=== PATIENT | male | born 1950 | race Caucasian/White ===

== ENCOUNTER 2025-04-27 13:37 | Inpatient (IN) | payer MEDICARE ==
[~2025-04-27] VITALS: Ht 180.3 cm; Wt 58.1 kg
[2025-04-27 13:44] VITALS: BP 158/94
[2025-04-27] MEDS ORDERED: DARU800T2 PO (13:51)
[2025-04-27] MEDS ORDERED: DOLU50TA PO (13:51)
[2025-04-27] MEDS ORDERED: TAMS-3 PO (13:51)
[2025-04-27] MEDS ORDERED: ESZO1TAB11 PO (13:51)
[2025-04-27] MEDS ORDERED: LOSA100T31 PO (13:51)
[2025-04-27] MEDS ORDERED: RITO100T PO (13:51)
[2025-04-27] MEDS ORDERED: MAG HYDROX/AL HYDROX/SIMETH 30 ML LIQUID UDC PO PRN (16:15)
[2025-04-27] MEDS ORDERED: MAGNESIUM HYDROXIDE 30 ML LIQUID UDC PO PRN (16:15)
[2025-04-27] MEDS ORDERED: ZOLPIDEM 5 MG TABLET PO PRN (16:15)
[2025-04-27] MEDS ORDERED: LORAZEPAM 1 MG TABLET PO PRN (16:15)
[2025-04-27] MEDS: BLOOD SUGAR DIAGNOSTIC 1 EACH STRIP VI ONE (18:06)
[2025-04-27 18:14] VITALS: BP 155/100; TEMP 98.1; O2SAT 96
[2025-04-27 20:18] VITALS: BP 155/100; TEMP 98.1; O2SAT 96
[2025-04-27] MEDS: OLANZAPINE 10 MG VIAL IM ONE (20:33)
[2025-04-28 08:01] VITALS: BP 159/97; TEMP 98.1; O2SAT 96
[2025-04-28 08:23] LABS: ASPARTATE AMINOTRANSFERASE 87 U/L (15-37); CREATININE 1.6 mg/dL (0.6-1.3); SODIUM SERUM 139 mmol/L (136-145); TOTAL PROTEIN, SERUM 7.9 g/dL (6.4-8.2); UREA NITROGEN, BLOOD 18 mg/dL (7-18)
[2025-04-28] MEDS: POTASSIUM CHLORIDE 20 MEQ TAB.PRT.SR PO ONE (12:14)
[2025-04-28] MEDS: LOSARTAN POTASSIUM 50 MG TABLET PO SCH (15:54)
[2025-04-28 16:19] VITALS: BP 141/69; TEMP 98.1; O2SAT 96
[2025-04-28] MEDS: TIVICAY 50 MG PO SCH (17:26)
[2025-04-28] MEDS: RITONAVIR 100 MG PO SCH (17:26)
[2025-04-28] MEDS: [UNRECOGNIZED DRUG - OTHER] PO SCH (17:26)
[2025-04-28] MEDS: [UNRECOGNIZED DRUG - OTHER] PO SCH (17:26)
[2025-04-28] MEDS: [UNRECOGNIZED DRUG - OTHER] PO SCH (18:28)
[2025-04-28] MEDS: DARUNAVIR 800 MG PO SCH (18:28)
[2025-04-28 19:46] VITALS: BP 157/93; TEMP 98.1; O2SAT 98
[2025-04-28] MEDS: QUETIAPINE FUMARATE 25 MG TABLET PO SCH (20:07)
[2025-04-28] MEDS: ACETAMINOPHEN 325 MG TABLET PO PRN (21:54)
[2025-04-28] MEDS: LORAZEPAM 1 MG TABLET PO PRN (21:54)
[2025-04-29 08:04] VITALS: BP 128/72; TEMP 98.1; O2SAT 96
[2025-04-29] MEDS: TAMSULOSIN HCL 0.4 MG CAP.SR.24H PO SCH (08:19)
[2025-04-29] MEDS ORDERED: DARUNAVIR ETHANOLATE 800 MG TABLET PO SCH (09:00)
[2025-04-29] MEDS: ENSURE ENLIVE (VAN) 240 ML LIQUID PO SCH (09:47)
[2025-04-29 16:14] VITALS: BP 122/71; TEMP 98.1; O2SAT 96
[2025-04-29 20:00] VITALS: BP 129/73; TEMP 98; O2SAT 96
[2025-04-30 08:17] LABS: PLATELET COUNT (AUTO) 185 K/uL (152-348); RED BLOOD CELL COUNT(AUTO) 4.27 MIL/uL (4.06-5.63); RED CELL DISTRIBUTION WIDTH 13.2 % (12.1-16.2); WHITE BLOOD COUNT (AUTO) 5.4 K/uL (3.6-10.2)
[2025-04-30 08:32] VITALS: BP 143/80; TEMP 98.1; O2SAT 96
[2025-04-30 08:34] LABS: ASPARTATE AMINOTRANSFERASE 25 U/L (15-37); CREATINE KINASE, TOTAL 26 U/L (39-308); CREATININE 1.5 mg/dL (0.6-1.3); SODIUM SERUM 141 mmol/L (136-145); TOTAL PROTEIN, SERUM 5.7 g/dL (6.4-8.2); UREA NITROGEN, BLOOD 21 mg/dL (7-18)
[2025-04-30 13:42] LABS: BAND % (MANUAL) 2 % (0-10); EOSINOPHILS % (MANUAL) 2 % (0-8); LYMPHOCYTES % (MANUAL) 25 % (20-40); MONOCYTES % (MANUAL) 16 % (2-10); NEUTROPHILS % (MANUAL) 55 % (42-75); PLATELET ESTIMATE ADEQUATE
[2025-04-30 16:05] VITALS: BP 152/80; TEMP 98.1; O2SAT 96
[2025-04-30 19:57] VITALS: BP 155/92; TEMP 98.4; O2SAT 97
[2025-05-01 07:10] LABS: PTH, INTACT 19 pg/mL (15-65)
[2025-05-01 07:30] VITALS: BP 154/91; TEMP 98.4; O2SAT 95
[2025-05-01 16:04] VITALS: BP 165/96; TEMP 97.7; O2SAT 95
[2025-05-01 18:14] LABS: *BILIRUBIN,URIN NEGATIVE (NEGATIVE); *BLOOD, URINE NEGATIVE (NEGATIVE); *CLARITY,URINE CLEAR (CLEAR); *COLOR,URINE YELLOW (YELLOW); *KETONES,URINE NEGATIVE (NEGATIVE); *PROTEIN,URINE NEGATIVE (NEGATIVE); *UROBILINOGEN,URINE 0.2 E.U./dl (NORMAL); LEUKOCYTE ESTERASE ,URINE NEGATIVE (NEGATIVE); NITRITE, URINE NEGATIVE (NEGATIVE); UGLUCOSE NEGATIVE (NEGATIVE)
[2025-05-01 18:23] LABS: *CREATININE,URINE 77.7 mg/dL (30-125); *SODIUM RNDM,URINE 57.0 mmol/L (40-220); *URINE TOTAL PROTEIN RANDOM 15.7 mg/dL (<150/24HR)
[2025-05-01 20:00] VITALS: BP 146/96; TEMP 98.8; O2SAT 97
[2025-05-01] MEDS: QUETIAPINE FUMARATE 25 MG TABLET PO SCH (20:32)
[2025-05-01] MEDS: ZOLPIDEM 5 MG TABLET PO PRN (23:54)
[2025-05-02 07:55] VITALS: BP 155/92; TEMP 98; O2SAT 96
[2025-05-02] MEDS: ESCITALOPRAM OXALATE 10 MG TABLET PO SCH (14:27)
[2025-05-02 15:05] VITALS: BP 151/90; TEMP 98; O2SAT 96
[2025-05-02 19:51] VITALS: BP 170/99; TEMP 98.1; O2SAT 96
[2025-05-02] MEDS: OLANZAPINE 2.5 MG TABLET PO SCH (20:29)
[2025-05-02 21:30] VITALS: BP 158/94
[2025-05-03 07:52] VITALS: BP 155/95; TEMP 97.8; O2SAT 96
[2025-05-03 08:25] LABS: CREATININE 1.3 mg/dL (0.6-1.3); SODIUM SERUM 140 mmol/L (136-145); UREA NITROGEN, BLOOD 15 mg/dL (7-18)
[2025-05-03 15:37] VITALS: BP 115/77; TEMP 98.2; O2SAT 96
[2025-05-03 19:53] VITALS: BP 135/80; TEMP 98.1; O2SAT 96
[2025-05-04 08:24] VITALS: BP 131/81; TEMP 98; O2SAT 98
[2025-05-04 15:36] VITALS: BP 103/68; TEMP 98; O2SAT 98
[2025-05-04 19:31] VITALS: BP 134/72; TEMP 98; O2SAT 98
[2025-05-05 08:16] VITALS: BP 150/86; TEMP 98; O2SAT 98
[2025-05-05 16:29] VITALS: BP 150/87; TEMP 98.3; O2SAT 97
[2025-05-05 20:00] VITALS: BP 156/62; TEMP 97.4; O2SAT 95
[2025-05-06 08:02] VITALS: BP 140/88; TEMP 98; O2SAT 98
[2025-05-06 16:19] VITALS: BP 174/88; TEMP 98; O2SAT 98
[2025-05-06 17:08] VITALS: BP 160/59; O2SAT 98
[2025-05-06 19:51] VITALS: BP 165/96; TEMP 98.1; O2SAT 95
[2025-05-07 08:02] VITALS: BP 145/90; TEMP 98; O2SAT 98
[2025-05-07 16:11] VITALS: BP 140/81; TEMP 98; O2SAT 98
[2025-05-07 19:48] VITALS: BP 155/91; TEMP 98.1; O2SAT 96
[2025-05-08 07:41] VITALS: BP 160/89; TEMP 97.6; O2SAT 98
[2025-05-08] MEDS: ESCITALOPRAM OXALATE 10 MG TABLET PO SCH (08:59)
[2025-05-08 16:18] VITALS: BP 158/96; TEMP 97.6; O2SAT 98
[2025-05-08 19:40] VITALS: BP 156/93; TEMP 98.1; O2SAT 97
[2025-05-09 06:07] LABS: A/G RATIO 1.3 (0.7-1.7); BETA GLOBULIN 0.7 g/dL (0.7-1.3); GLOBULIN, TOTAL 2.2 g/dL (2.2-3.9); M-SPIKE Not Observed g/dL (Not Observed); PROTEIN, TOTAL 5.0 g/dL (6.0-8.5)
[2025-05-09 08:23] VITALS: BP 143/92; TEMP 98; O2SAT 94
== END 2025-05-09 11:00 | DRG 885 ==
LOC: ER 13:48 → GPS 14:24
PROVIDERS: ADMIT Psychiatry & Neurology Psychiatry; ATTEND Nurse Practitioner Acute Care
DX: F39 Unspecified mood [affective] disorder (principal); N18.9 Chronic kidney disease, unspecified; N17.9 Acute kidney failure, unspecified; F03.92 Unspecified dementia, unspecified severity, with psychotic disturbance; F03.94 Unspecified dementia, unspecified severity, with anxiety; N13.8 Other obstructive and reflux uropathy; Z68.1 Body mass index [BMI] 19.9 or less, adult; F23 Brief psychotic disorder; I12.9 Hypertensive chronic kidney disease with stage 1 through stage 4 chronic kidney disease, or unspecified chronic kidney disease; E87.6 Hypokalemia; N40.1 Benign prostatic hyperplasia with lower urinary tract symptoms; R62.7 Adult failure to thrive; E78.5 Hyperlipidemia, unspecified; R74.01 Elevation of levels of liver transaminase levels; Z79.899 Other long term (current) drug therapy; Z92.21 Personal history of antineoplastic chemotherapy
CPT/HCPCS: 36415; 70030-TC; 70450; 76770; 83735; 83970; 84100; 84155; 84165; 84300; A4606; A4663; J2358